=== PATIENT | female | born 1975 | race African-American/Black ===

== ENCOUNTER 2017-03-09 15:27 | Emergency (ER) | payer OTHER ==
[~2017-03-09 15:27] MED LIST: BACTRIM D.S. TAB1 EA PO; CATAPRES 0.1MG0.1 MG PO; IPRAT-ALBUT 0.5-3 ML INH; KEFLEX500 MG PO; LITHIUM CARBON300 MG PO; NEURONTIN 400400 MG PO; NORCO 5-325 TA1 EACH PO; SEROQUEL400 MG PO; SYMBICORT 80-10.2 GM INH; VENTOLIN HFA8 GM INH; ZOLOFT100 MG PO
[2017-03-09 16:46] LABS: HEMOGLOBIN 11.3 gm/dl (12.3-15.3); RED BLOOD COUNT 4.06 M/UL (4.00-5.10); WHITE BLOOD COUNT 7.6 K/UL (4.5-11.0)
[2017-03-09 17:08] LABS: BUN/CREATININE RATIO 20 (0-10)
== END 2017-03-09 20:21 | disposition home or self-care (01) ==
LOC: ER1 15:27
PROVIDERS: Emergency Medicine
DX: R25.9 Unspecified abnormal involuntary movements (principal); F19.90 Other psychoactive substance use, unspecified, uncomplicated; I10 Essential (primary) hypertension; J44.9 Chronic obstructive pulmonary disease, unspecified
CPT/HCPCS: 36415; 70450; 71010; 80053; 80299; 80307; 81001; 84703; 85025; 96372; 99285; J2060